=== PATIENT | male | born 1945 | race Caucasian/White ===

== ENCOUNTER 2018-10-10 05:46 | Emergency (ER) | payer MEDICARE ==
[2018-10-10] MEDS ORDERED: ALBUTEROL NEB 2.5 MG/3 ML INH STA (06:00)
[2018-10-10] MEDS ORDERED: LORazepam 0.5 MG TABLET PO STA (06:00)
--- NOTE | 2018-10-10 06:10 | ED Physician Documentation ---
History of Present Illness - Stated complaint Stated Complaint: ANXIETY - Chief complaint Chief Complaint: MHE - History obtained from History obtained from: Patient, Family - History of Present Illness Timing: Yesterday Pain level max: 0 Pain level now: 0 - Additonal information Additional information: 72-year-old male states that he has not been feeling well since yesterday. He states he is having difficulty describing what he is feeling but he feels restless and anxious. He states normally he has coffee in the morning but does not feel like he needs coffee today. States he had nasal congestion and took a dose of Flonase this morning. Says that his chest is felt tight since yesterday like it is hard to breathe and he has to take a deep breath every once in a while. Has not had similar symptoms previously. No fevers. No coughing. Nothing makes it better or worse. Review of Systems Ten Systems: 10 systems reviewed and negative Constitutional: denies: Fever, Chills Ears: denies: Ear pain Nose: reports: Rhinorrhea / runny nose, Congestion Throat: denies: Sore throat Cardiac: reports: Chest pain / pressure (Tightness). denies: Palpitations Respiratory: reports: Dyspnea. denies: Cough, Hemoptysis GI: denies: Abdominal Pain, Nausea, Vomiting, Diarrhea Skin: denies: Rash Musculoskeletal: denies: Neck pain, Back pain Neurologic: denies: Focal weakness, Numbness, Syncope, Confused, Altered mental status, Headache PD PAST MEDICAL HISTORY - Past Medical History Past Medical History: Yes Cardiovascular: Hypertension, High cholesterol Respiratory: Sleep apnea, CPAP use - Past Surgical History Past Surgical History: Yes Ortho: Knee replacement, Rotator cuff repair - Present Medications Home Medications: Ambulatory Orders Medication Instructions Recorded Confirmed Aspirin 81 mg PO DAILY 09/15/14 09/15/14 Bupropion HCl [Wellbutrin] 100 mg PO DAILY 09/15/14 09/15/14 Ciprofloxacin [Cipro] 500 mg PO Q12H 7 Days tablet 09/15/14 Lisinopril 10 mg PO DAILY 09/15/14 09/15/14 Simvastatin 09/15/14 09/15/14 Tamsulosin [Flomax] 0.4 mg PO DAILY 09/15/14 09/15/14 raNITIdine [Zantac] 150 mg PO BID 09/15/14 09/15/14 Albuterol Sulf [Ventolin Hfa 1 - 2 puffs INH Q4HR PRN #1 inhaler 10/10/18 Inhaler] LORazepam [Ativan] 0.5 mg PO Q6H PRN #10 tablet 10/10/18 - Allergies Allergies/Adverse Reactions: Allergies Allergy/AdvReac Type Severity Reaction Status Date / Time metronidazole Allergy Rash Verified 10/10/18 06:00 - Social History Does the pt smoke?: No Smoking Status: Never smoker Does the pt drink ETOH?: Yes Does the pt have substance abuse?: No - Immunizations Immunizations are current?: Yes PD ED PE NORMAL - Vitals Vital signs reviewed: Yes - General General: Alert and oriented X 3, No acute distress, Well developed/nourished - HEENT HEENT: PERRL, Ears normal, Moist mucous membranes, Pharynx benign - Neck Neck: Supple, no meningeal sign - Cardiac Cardiac: RRR, Strong equal pulses - Respiratory Respiratory: No respiratory distress, Clear bilaterally - Abdomen Abdomen: Soft, Non tender, Non distended - Derm Derm: Warm and dry, No rash - Extremities Extremities: No edema, No calf tenderness / cord - Neuro Neuro: Alert and oriented X 3, director 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, No motor deficit, No sensory deficit, Normal speech - Psych Psych: Normal mood, Normal affect Results - Vitals Vitals: Vital Signs - 24 hr 10/10/18 10/10/18 10/10/18 05:50 06:15 06:29 Temperature 36.1 C L Heart Rate 86 76 81 Respiratory 16 15 12 Rate Blood Pressure 219/105 H 202/109 H O2 Saturation 97 95 10/10/18 07:00 Temperature 36.5 C Heart Rate 80 Respiratory 17 Rate Blood Pressure 151/127 H O2 Saturation 96 Oxygen O2 Source Room air - EKG (time done) 0607 Rate: Rate (enter#) (80) Rhythm: NSR [place]: Normal Intervals: Normal [place] QRS: Normal Ischemia: Normal ST segments - Labs Labs: Laboratory Tests 10/10/18 10/10/18 10/10/18 06:17 06:17 06:17 WBC 8.9 RBC 5.09 Hgb 15.1 Hct 45.4 MCV 89.1 MCH 29.6 MCHC 33.2 RDW 13.9 Plt Count 214 MPV 7.8 Neut # (Auto) 6.1 Lymph # (Auto) 1.2 L [place] # (Auto) 0.8 Eos # (Auto) 0.6 Baso # (Auto) 0.1 Absolute Nucleated RBC 0.00 Nucleated RBC % 0.0 Sodium 139 Potassium 4.1 Chloride 103 Carbon Dioxide 24 Anion Gap 12.0 BUN 22 H Creatinine 1.2 Estimated GFR (MDRD) 59 L Glucose 168 H Calcium 9.2 Phosphorus 3.1 Magnesium 2.0 Total Bilirubin 0.5 AST 29 ALT 21 Alkaline Phosphatase 70 Troponin I < 0.04 B-Natriuretic Peptide Total Protein 7.4 Albumin 3.9 Globulin 3.5 Albumin/Globulin Ratio 1.1 Lipase 52 H 10/10/18 06:17 WBC RBC Hgb Hct MCV MCH MCHC RDW Plt Count MPV Neut # (Auto) Lymph # (Auto) [place] # (Auto) Eos # (Auto) Baso # (Auto) Absolute Nucleated RBC Nucleated RBC % Sodium Potassium Chloride Carbon Dioxide Anion Gap BUN Creatinine Estimated GFR (MDRD) Glucose Calcium Phosphorus Magnesium Total Bilirubin AST ALT Alkaline Phosphatase Troponin I B-Natriuretic Peptide 32 Total Protein Albumin Globulin Albumin/Globulin Ratio Lipase - Rads (name of study) cxr Radiology: Prelim report reviewed, EMP read contemporaneously, See rad report (No acute disease) PD MEDICAL DECISION MAKING - ED course Complexity details: reviewed results, re-evaluated patient, considered differential, d/w patient, d/w family ED course: Patient feels better after Ativan and albuterol. No acute laboratory findings. No acute findings on EKG. We will continue albuterol and Ativan at home. Possible combination of viral URI with a panic attack. Patient counseled r egarding signs and symptoms for which I believe and urgent re-evaluation would be necessary. Patient with good understanding of and agreement to plan and is comfortable going home at this time This document was made in part using voice recognition software. While efforts are made to proofread this document, sound alike and grammatical errors may occur. Departure - Departure Disposition: 01 Home, Self Care Clinical Impression: Anxiety, Viral URI Condition: Good Instructions: ED Panic Attack, ED URI Viral Follow-Up: your,doctor in 3 days [Other] Prescriptions: Albuterol Sulf [Ventolin Hfa Inhaler] 1 - 2 puffs INH Q4HR PRN #1 inhaler PRN Reason: Shortness Of Air/Wheezing LORazepam [Ativan] 0.5 mg PO Q6H PRN #10 tablet PRN Reason: Anxiety Comments: Return if you worsen. Follow-up with your doctor for further care. Do not drive while taking Ativan. Use the inhaler as needed.
[2018-10-10 06:27] LABS: BASOPHILS # (AUTO) 0.1 10^3/uL (0.0-0.1); BASOPHILS % (AUTO) 1.2 %; EOSINOPHILS # (AUTO) 0.6 10^3/uL (0.0-0.7); EOSINOPHILS % (AUTO) 7.1 %; HGB - HEMOGLOBIN 15.1 g/dL (14.0-18.0); LYMPHOCYTES # (AUTO) 1.2 10^3/uL (1.5-3.5); LYMPHOCYTES % (AUTO) 14.1 %; MEAN CORPUSCULAR HEMOGLOBIN 29.6 pg (27.0-31.0); MEAN CORPUSCULAR HGB CONC 33.2 g/dL (32.0-36.0); MEAN CORPUSCULAR VOLUME 89.1 fL (80.0-94.0); MEAN PLATELET VOLUME 7.8 fL (7.4-11.4); MONOCYTES # (AUTO) 0.8 10^3/uL (0.0-1.0); MONOCYTES % (AUTO) 8.9 %; NEUTROPHILS # (AUTO) 6.1 10^3/uL (1.5-6.6); NEUTROPHILS % (AUTO) 68.7 %; PLT - PLATELET COUNT 214 10^3/uL (130-450); RED BLOOD COUNT 5.09 10^6/uL (4.70-6.10); RED CELL DISTRIBUTION WIDTH 13.9 % (12.0-15.0); WHITE BLOOD COUNT 8.9 x10^3/uL (4.8-10.8)
--- NOTE | 2018-10-10 06:27 | XRAY Report ---
Reason: chest tightness. Procedure Date: 10/10/2018 Accession Number: [id number] / [id number] Procedure: XR - Chest 1 View X-Ray CPT Code: 24749 FULL RESULT: EXAM: CHEST RADIOGRAPHY EXAM DATE: 10/10/2018 06:02 AM. CLINICAL HISTORY: Chest tightness. COMPARISON: None. TECHNIQUE: 1 view. FINDINGS: Lungs/Pleura: No alveolar consolidation or pleural effusion seen. Pulmonary vascularity is upper normal. No pneumothorax is noted. Mediastinum: Within exam limitations, there is borderline heart size. Other: None. IMPRESSION: 1. Borderline heart size and pulmonary vascularity. RADIA
[2018-10-10 06:41] LABS: ALBUMIN 3.9 g/dL (3.2-5.5); ALBUMIN/GLOBULIN RATIO 1.1 (1.0-2.2); BILIRUBIN,TOTAL 0.5 mg/dL (0.2-1.0); CALCIUM 9.2 mg/dL (8.5-10.3); CREATININE 1.2 mg/dL (0.6-1.2); PHOSPHORUS 3.1 mg/dL (2.5-4.6); TOTAL PROTEIN 7.4 g/dL (6.7-8.2)
[2018-10-10 07:32] VITALS: BP 165/88
== END 2018-10-10 07:37 | disposition home or self-care (01) ==
LOC: ED 05:46
DX: F41.9 Anxiety disorder, unspecified (principal); I10 Essential (primary) hypertension; J06.9 Acute upper respiratory infection, unspecified
CPT/HCPCS: 36415; 71045; 80053; 83690; 83735; 83880; 84100; 84484; 85025; 93005; 94640; 99283; 99285; A9270

== ENCOUNTER 2019-05-05 10:33 | Outpatient (CLI) | payer MEDICARE | END 2019-05-05 10:34 | disposition home or self-care (01) | LOC: LAB 10:33 | DX: N30.01 Acute cystitis with hematuria (principal); R05 Cough | CPT/HCPCS: 36415; 84132 ==

== ENCOUNTER 2019-11-02 11:03 | Emergency (ER) | payer MEDICARE ==
[2019-11-02 11:45] LABS: BASOPHILS # (AUTO) 0.1 10^3/uL (0.0-0.1); BASOPHILS % (AUTO) 0.5 %; EOSINOPHILS # (AUTO) 0.3 10^3/uL (0.0-0.7); EOSINOPHILS % (AUTO) 2.4 %; HGB - HEMOGLOBIN 14.8 g/dL (14.0-18.0); LYMPHOCYTES # (AUTO) 0.7 10^3/uL (1.5-3.5); LYMPHOCYTES % (AUTO) 5.1 %; MEAN CORPUSCULAR HEMOGLOBIN 29.7 pg (27.0-31.0); MEAN CORPUSCULAR HGB CONC 32.7 g/dL (32.0-36.0); MEAN CORPUSCULAR VOLUME 90.8 fL (80.0-94.0); MEAN PLATELET VOLUME 10.2 fL (7.4-11.4); NEUTROPHILS # (AUTO) 10.6 10^3/uL (1.5-6.6); NEUTROPHILS % (AUTO) 83.5 %; PLT - PLATELET COUNT 207 10^3/uL (130-450); RED BLOOD COUNT 4.99 10^6/uL (4.70-6.10); RED CELL DISTRIBUTION WIDTH 13.1 % (12.0-15.0); WHITE BLOOD COUNT 12.7 x10^3/uL (4.8-10.8)
[2019-11-02 11:50] LABS: BILIRUBIN,URINE NEGATIVE (NEGATIVE); GLUCOSE, URINE (UA) NEGATIVE (NEGATIVE); KETONES,URINE (UA) NEGATIVE (NEGATIVE); LEUKOCYTE ESTERASE, URINE LARGE (NEGATIVE); NITRITE,URINE NEGATIVE (NEGATIVE); OCCULT BLOOD,URINE MODERATE (NEGATIVE); PH,URINE 5.5 PH (5.0-7.5); PROTEIN,URINE NEGATIVE (NEGATIVE); UROBILINOGEN,URINE 0.2 (NORMAL) E.U./dL (NORMAL)
[2019-11-02 11:51] LABS: CLARITY,URINE SL. CLOUDY (CLEAR)
[2019-11-02 12:00] LABS: ALBUMIN 3.9 g/dL (3.2-5.5); BILIRUBIN,TOTAL 0.7 mg/dL (0.2-1.0); CALCIUM 8.9 mg/dL (8.5-10.3); CREATININE 1.8 mg/dL (0.6-1.2); TOTAL PROTEIN 7.9 g/dL (6.7-8.2)
[2019-11-02 12:01] LABS: BACTERIA,URINE Few /HPF (None Seen); SQUAMOUS EPITHELIAL CELL,UR RARE Squamous (<= Few)
--- NOTE | 2019-11-02 12:02 | ED Physician Documentation ---
PD HPI MALE - Stated complaint Stated Complaint: MALE - Chief complaint Chief Complaint: UTI - History obtained from History obtained from: Patient - History of Present Illness Timing - onset: How many days ago (4-5) Timing - duration: Days (4-5) Timing - details: Gradual onset Associated symptoms: Dysuria, Urinary frequency, Testiclar pain (right testicle for the past 1-2 days.). No: Genital sore / lesion, Scrotal swelling, Abdominal pain Similar symptoms before: Diagnosis (uti) Recently seen: Not recently seen Review of Systems Constitutional: reports: Fever (yesterday/last night) Nose: reports: Congestion (some mild runny nose and has had some sores around the left nasal rim.). denies: Rhinorrhea / runny nose Throat: denies: Sore throat Respiratory: denies: Cough : reports: Dysuria, Frequency Skin: denies: Rash, Lesions Neurologic: denies: Focal weakness, Numbness, Near syncope, Altered mental status, Headache Endocrine: denies: Weight loss PD PAST MEDICAL HISTORY - Past Medical History Past Medical History: Yes Cardiovascular: Hypertension, High cholesterol Respiratory: Sleep apnea, CPAP use - Past Surgical History Past Surgical History: Yes Ortho: Knee replacement, Rotator cuff repair - Present Medications Home Medications: Ambulatory Orders Medication Instructions Recorded Confirmed Aspirin 81 mg PO DAILY 09/15/14 09/15/14 Bupropion HCl [Wellbutrin] 100 mg PO DAILY 09/15/14 09/15/14 Ciprofloxacin [Cipro] 500 mg PO Q12H 7 Days tablet 09/15/14 Simvastatin 09/15/14 09/15/14 Tamsulosin [Flomax] 0.4 mg PO DAILY 09/15/14 09/15/14 lisinopriL [Lisinopril] 10 mg PO DAILY 09/15/14 09/15/14 raNITIdine [Zantac] 150 mg PO BID 09/15/14 09/15/14 Albuterol Sulf [Ventolin Hfa 1 - 2 puffs INH Q4HR PRN #1 inhaler 10/10/18 Inhaler] LORazepam [Ativan] 0.5 mg PO Q6H PRN #10 tablet 10/10/18 Cephalexin [Keflex] 500 mg PO Q6H #28 capsule 11/02/19 - Allergies Allergies/Adverse Reactions: Allergies Allergy/AdvReac Type Severity Reaction Status Date / Time metronidazole Allergy Rash Verified 11/02/19 11:10 - Social History Does the pt smoke?: No Smoking Status: Never smoker Does the pt drink ETOH?: Yes Does the pt have substance abuse?: No - Immunizations Immunizations are current?: Yes - POLST Patient has POLST: No PD ED PE NORMAL - Vitals Vital signs reviewed: Yes - General General: Alert and oriented X 3, No acute distress, Well developed/nourished - HEENT HEENT: Moist mucous membranes, Pharynx benign - Neck Neck: Supple, no meningeal sign, No adenopathy - Cardiac Cardiac: RRR, No murmur - Respiratory Respiratory: Clear bilaterally - Abdomen Abdomen: Normal bowel sounds, Soft, Non tender, Non distended, No organomegaly - Male Male : Other (both testicles normal size and lie, with good cremaster reflex. Right epididymis with some swelling/fullness and notable tenderness. ) - Rectal Rectal: Deferred - Back Back: No spinal TTP, Other (mild rigth CVA tenderness) - Derm Derm: Normal color, Warm and dry, No rash - Extremities Extremities: Normal ROM s pain - Neuro Neuro: Alert and oriented X 3, No motor deficit, Normal speech Results - Vitals Vitals: Vital Signs - 24 hr 11/02/19 11/02/19 11:05 12:45 Temperature 36.8 C 36.7 C Heart Rate 89 88 Respiratory 16 16 Rate Blood Pressure 163/125 H 160/90 H O2 Saturation 96 98 Oxygen O2 Source Room air - Labs Labs: Laboratory Tests 11/02/19 11/02/19 11/02/19 11:15 11:32 11:32 WBC 12.7 H RBC 4.99 Hgb 14.8 Hct 45.3 MCV 90.8 MCH 29.7 MCHC 32.7 RDW 13.1 Plt Count 207 MPV 10.2 Neut # (Auto) 10.6 H Lymph # (Auto) 0.7 L [place] # (Auto) 1.0 Eos # (Auto) 0.3 Baso # (Auto) 0.1 Absolute Nucleated RBC 0.00 Nucleated RBC % 0.0 Sodium 137 Potassium 4.1 Chloride 104 Carbon Dioxide 22 Anion Gap 11.0 BUN 25 H Creatinine 1.8 H Estimated GFR (MDRD) 37 L Glucose 219 H Calcium 8.9 Total Bilirubin 0.7 AST 24 ALT 18 Alkaline Phosphatase 61 Total Protein 7.9 Albumin 3.9 Globulin 4.0 Albumin/Globulin Ratio 1.0 Lipase 52 H Urine Color YELLOW Urine Clarity SL. CLOUDY Urine pH 5.5 Ur Specific [place] 1.020 Urine Protein NEGATIVE Urine Glucose (UA) NEGATIVE Urine Ketones NEGATIVE Urine Occult Blood MODERATE H Urine Nitrite NEGATIVE Urine Bilirubin NEGATIVE Urine Urobilinogen 0.2 (NORMAL) Ur Leukocyte Esterase LARGE H Urine RBC 11-25 H Urine WBC 11-25 H Ur Squamous Epith Cells RARE Squamous Urine Bacteria Few Ur Microscopic Review INDICATED Urine Culture Comments INDICATED Nasal Screen MRSA (PCR) 11/02/19 12:40 WBC RBC Hgb Hct MCV MCH MCHC RDW Plt Count MPV Neut # (Auto) Lymph # (Auto) [place] # (Auto) Eos # (Auto) Baso # (Auto) Absolute Nucleated RBC Nucleated RBC % Sodium Potassium Chloride Carbon Dioxide Anion Gap BUN Creatinine Estimated GFR (MDRD) Glucose Calcium Total Bilirubin AST ALT Alkaline Phosphatase Total Protein Albumin Globulin Albumin/Globulin Ratio Lipase Urine Color Urine Clarity Urine pH Ur Specific [place] Urine Protein Urine Glucose (UA) Urine Ketones Urine Occult Blood Urine Nitrite Urine Bilirubin Urine Urobilinogen Ur Leukocyte Esterase Urine RBC Urine WBC Ur Squamous Epith Cells Urine Bacteria Ur Microscopic Review Urine Culture Comments Nasal Screen MRSA (PCR) NEGATIVE Departure - Departure Disposition: 01 Home, Self Care Clinical Impression: Epididymitis UTI (urinary tract infection) Qualifiers: Urinary tract infection type: acute cystitis Hematuria presence: without hematuria Qualified Code(s): N30.00 - Acute cystitis without hematuria Condition: Stable Record reviewed to determine appropriate education?: Yes Instructions: ED UTI Cystitis Male Follow-Up: Deandre Rizzo MD [Primary Care Provider] - Prescriptions: Cephalexin [Keflex] 500 mg PO Q6H #28 capsule Comments: Stay well-hydrated. Continue usual medicines. Cephalexin for a week as prescribed. The culture of the urine as well as the MRSA test for your nose should result in a couple of days. We can modify antibiotics based on those if need be. You can increase your ibuprofen use to 2-3 times a day for the next 3 or 4 days until you are feeling improved with the infection. Then resume back to your nightly dosing. Recheck if not improving well over the next 2 to 3 days. Discharge Date/Time: 11/02/19 12:45
[2019-11-02] MEDS ORDERED: cephALEXin 250 MG CAPSULE PO STA (12:32)
[2019-11-02] MEDS ORDERED: IBUPROFEN 600 MG TABLET PO STA (12:32)
[2019-11-02 12:46] VITALS: BP 160/90
== END 2019-11-02 12:45 | disposition home or self-care (01) ==
LOC: ED 11:03
DX: N45.1 Epididymitis (principal); N30.00 Acute cystitis without hematuria; J34.89 Other specified disorders of nose and nasal sinuses; I10 Essential (primary) hypertension
CPT/HCPCS: 36415; 80053; 81001; 83690; 85025; 87086; 87181; 87640; 99283; 99284; A9270; 81003

== ENCOUNTER 2021-04-20 14:04 | Outpatient (CLI) | payer MEDICARE | END 2021-04-20 14:05 | disposition home or self-care (01) | LOC: COV 14:04 | PROVIDERS: ATTEND Family Medicine | DX: R50.9 Fever, unspecified (principal); R06.02 Shortness of breath; R53.83 Other fatigue; R19.7 Diarrhea, unspecified; R41.3 Other amnesia; R41.0 Disorientation, unspecified; Z20.822 Contact with and (suspected) exposure to COVID-19 ==

== ENCOUNTER 2023-04-30 20:17 | Outpatient (CLI) | payer MEDICARE ==
[2023-05-04 21:07] LABS: GIARDIA LAMBLIA AG EIA Negative (Negative)
== END 2023-04-30 20:18 | disposition home or self-care (01) ==
LOC: LAB 20:17
DX: R19.7 Diarrhea, unspecified (principal)
CPT/HCPCS: 36415; 82784; 83630; 83993; 86364; 87045; 87046; 87177; 87209; 87329; 87427; 87493

== ENCOUNTER 2023-06-19 19:02 | Outpatient (CLI) | payer MEDICARE ==
[2023-06-19 19:19] LABS: BILIRUBIN,URINE NEGATIVE (NEGATIVE); GLUCOSE, URINE (UA) NEGATIVE (NEGATIVE); KETONES,URINE (UA) NEGATIVE (NEGATIVE); LEUKOCYTE ESTERASE, URINE NEGATIVE (NEGATIVE); NITRITE,URINE NEGATIVE (NEGATIVE); OCCULT BLOOD,URINE NEGATIVE (NEGATIVE); PROTEIN,URINE NEGATIVE (NEGATIVE); UROBILINOGEN,URINE 0.2 (NORMAL) E.U./dL (NORMAL)
[2023-06-19 19:23] LABS: CLARITY,URINE CLEAR (CLEAR)
== END 2023-06-19 19:03 | disposition home or self-care (01) ==
LOC: LAB 19:02
DX: R39.9 Unspecified symptoms and signs involving the genitourinary system (principal); N50.819 Testicular pain, unspecified
CPT/HCPCS: 81001; 81003; 87086